=== PATIENT | female | born 1995 | race Caucasian/White ===

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

== ENCOUNTER 2017-08-18 18:15 | Emergency (ER) | payer OTHER ==
[2017-08-18 18:20] VITALS: RESP 16
--- NOTE | 2017-08-18 18:57 | EDPHY ---
HPI/HX/ROS/PE/MDM Narrative: CHIEF COMPLAINT: Sore throat HPI: The patient is a healthy 22 y/o female complaining of a sore throat and a runny nose. Several people she lives with have had strep. She denies fever or other associated symptoms. She would like to be tested for step throat. She is able to swallow and drink water without difficulty. REVIEW OF SYSTEMS: Aside from elements discussed in the HPI, a comprehensive 10-point review of systems was reviewed and is negative. PMH: Denies SOCIAL HISTORY: Lives in [place], [employer] student, friend at bedside PHYSICAL EXAM: General:Patient is alert, in no acute distress. She is well appearing. ENT: Mild erythema, no exudate, speaking normally, no asymmetry in throat. No lymphedema. Neck: Normal inspection. Full range of motion. Respiratory:No respiratory distress. Breath sounds normal bilaterally. Cardiovascular: Regular rate and rhythm. Normal cap refill. Abdomen:The abdomen is nontender to palpation. There are no peritoneal signs. There are normal bowel sounds. Back: Normal to inspection. No tenderness to palpation. Skin: Normal color. No rash. Warm and dry. Extremities: Normal appearance. Full range of motion. Neuro: Oriented x3. Normal motor function. Normal sensory function. ED Course: Labs are negative for flu and strep. 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 She is appropriate for conservative outpatient management. Return precautions and follow-up instructions given. Patient agrees to this course of action. - Data Points Laboratory Results: 08/18/17 08/18/17 08/18/17 Unknown 18:55 18:55 Nasal Influenza A PCR NEGATIVE FOR FLU A (NEGATIVE) Nasal Influenza B PCR NEGATIVE FOR FLU B (NEGATIVE) Influenza A,B Rapid Cancelled Group A Strep Screen Group A Strep DNA Pending 08/18/17 18:40 Nasal Influenza A PCR Nasal Influenza B PCR Influenza A,B Rapid Group A Strep Screen NEGATIVE (NEGATIVE) Group A Strep DNA General Time Seen by Provider: 08/18/17 18:50 Initial Vital Signs: Initial Vital Signs Temperature (C) 37.2 C 08/18/17 18:17 Heart Rate 87 08/18/17 18:17 Respiratory Rate 16 08/18/17 18:17 Blood Pressure 117/65 08/18/17 18:17 O2 Sat (%) 98 08/18/17 18:17 O2 Delivery Mode Room Air Allergies/Adverse Reactions: No Known Allergies Allergy (Unverified 10/22/16 22:05) Home Medications: Medication Instructions Recorded IMITREX 10/22/16 Lexapro 10/22/16 Departure - Departure Disposition: Home, Routine, Self-Care Clinical Impression: Pharyngitis Condition: Good Instructions: Pharyngitis (ED) Additional Instructions: 1. Rest and drink fluids. 2. Follow-up with your primary care provider for unimproved symptoms in 2-3 days. 3. Return to the ED for worsening of condition. Referrals: Zane Jacobsen MD [Primary Care Provider] - As per Instructions Report Scribed for: Del Muhammad Report Scribed by: Carla Moseley Date of Report: 08/18/17 Time of Report: 18:57 Physician Review and Approval Statement: Portions of this note were transcribed by an ED scribe. I personally performed the history, physical exam, and medical decision making; and confirm the accuracy of the information in the transcribed note.
[2017-08-18 20:14] VITALS: BP 129/76; PULSE 81; TEMP 98.2; O2SAT 97
== END 2017-08-18 20:13 | disposition home or self-care (01) ==
DX: J02.9 Acute pharyngitis, unspecified (principal)